=== PATIENT | male | born 1980 | race Asian ===

== ENCOUNTER 2018-08-31 08:28 | Emergency (ER) | payer OTHER ==
[~2018-08-31] VITALS: Ht 165.1 cm; Wt 89.4 kg
[2018-08-31 08:30] VITALS: BP 140/89
--- NOTE | 2018-08-31 08:41 | NUR ---
Patient ambulated to bed 11
--- NOTE | 2018-08-31 08:43 | NUR ---
38 y male bib self c/o rectal pain x 2 days. denies trauma. denies rectal bleeding. last BM yesterday. states his bowel movements are strained. pain 9/10, aching. vss at this time. pt aa0x4. bed is down, locked, bed rail x 1, ermd to see pt. med hx: hemorroids
--- NOTE | 2018-08-31 09:05 | NUR ---
dr ignacio at bedside for pt evaluation
[2018-08-31] MEDS ORDERED: LIDOCAINE VISCOUS 2% 20 ML UDC PO ONE (09:10)
--- NOTE | 2018-08-31 09:20 | NUR ---
PT COMPLAINING OF ANXIETY, DR DUMONT NOTIFIED.
[2018-08-31] MEDS ORDERED: LORazepam 1 MG TAB PO ONE (09:25)
[2018-08-31 09:52] VITALS: BP 134/87
--- NOTE | 2018-08-31 09:52 | NUR ---
PT PAIN 5/10 AT THIS TIME. PT STATES ANXIETY HAS DECREASED.
--- NOTE | 2018-08-31 09:52 | NUR ---
Patient discharged with v/s stable. Written and verbal after care instructions given and explained. Patient alert, oriented and verbalized understanding of instructions. Ambulatory with steady gait. All questions addressed prior to discharge. ID band removed. Patient advised to follow up with PMD. Rx of VISATRIL, ANUSOL RECTAL SUPPOSITORY given. Patient educated on indication of medication including possible reaction and side effects. Opportunity to ask questions provided and answered. PT PROVIDED WITH EXCUSE FROM WORK.
== END 2018-08-31 09:52 | disposition home or self-care (01) ==
LOC: MED 08:28
DX: S30.817A Abrasion of anus, initial encounter (principal); K59.4 Anal spasm; F41.9 Anxiety disorder, unspecified; Z88.2 Allergy status to sulfonamides; Z88.1 Allergy status to other antibiotic agents; X58.XXXA Exposure to other specified factors, initial encounter; Y93.89 Activity, other specified; Y92.89 Other specified places as the place of occurrence of the external cause; Y99.8 Other external cause status
CPT/HCPCS: 99283

== ENCOUNTER 2018-09-01 07:39 | Emergency (ER) | payer OTHER ==
[~2018-09-01] VITALS: Ht 167.6 cm; Wt 89.4 kg
[2018-09-01 07:45] VITALS: BP 125/76
--- NOTE | 2018-09-01 07:45 | NUR ---
PT AMBULATED TO ED BED 08
--- NOTE | 2018-09-01 07:55 | NUR ---
PT PRESENTS TO ED WITH C/O RECTAL PAIN. PT STATED WAS SEEN BY ER MD YESTERDAY WITH DX.HEMORRHOID, PAIN NOT RELIEVED TODAY. AAO X4, GCS 15, MABULATORY WITH STEADY GAIT. RESPIATIONS EVEN AND UNALBORED, BL LUNG CLEAR. SKIN WARM/PINK/DRY,+PMSC. STATED PAIN TO RECTUM 10/10. VS WNL. MADE AWARE OF PT STATUS
[2018-09-01] MEDS ORDERED: LIDOCAINE 1% 500 MG/50 ML VIAL INJ SCH (08:20)
[2018-09-01] MEDS ORDERED: KETOROLAC 60 MG/2 ML VIAL IM ONE (08:20)
[2018-09-01] MEDS ORDERED: LIDOCAINE MPF 1% 5mL VIAL ONE ×2 (08:36→10:38)
--- NOTE | 2018-09-01 10:20 | NUR ---
PERFORMED I AND D AT BEDSIDE
--- NOTE | 2018-09-01 10:48 | NUR ---
Patient discharged with v/s stable. Written and verbal after care instructions given and explained. Patient alert, oriented and verbalized understanding of instructions. Ambulatory with steady gait. All questions addressed prior to discharge. ID band removed. Patient advised to follow up with PMD. Rx of CLINDAMYCIN, NORCO 5, MOTRIN 800 MG given. Patient educated on indication of medication including possible reaction and side effects. Opportunity to ask questions provided and answered.
[2018-09-01 10:49] VITALS: BP 120/70
== END 2018-09-01 10:48 | disposition home or self-care (01) ==
LOC: MED 07:39
DX: K61.1 Rectal abscess (principal); Z88.2 Allergy status to sulfonamides; Z88.1 Allergy status to other antibiotic agents
CPT/HCPCS: 10060; 96372; 99283; J1885; J2001